=== PATIENT | female | born 1990 | race Caucasian/White ===

== ENCOUNTER → 2019-07-02 13:33 | Outpatient (CLI) | payer OTHER, SELFPAY ==
[2019-07-02 13:59] LABS: Add Manual Diff / Slide Review NO; Basophils Absolute Auto 100 /uL (0-100); Basophils Percent Auto 0.7 % (0-2); Eosinophils Absolute Auto 100 /uL (0-450); Eosinophils Percent Auto 1.9 % (2-4); Hematocrit 40.8 % (36-46); Lymphocytes Absolute Auto 2200 /uL (1100-4500); Lymphocytes Percent Auto 28.1 % (25-40); Mean Corpuscular HGB Conc 34.3 % (30-36); Mean Corpuscular Hemoglobin 31.9 PG (26-34); Mean Corpuscular Volume 92.9 fL (80-100); Monocytes Absolute Auto 900 /uL (0-900); Monocytes Percent Auto 11.5 % (3-14); Neutrophils Absolute Auto 4500 /uL (1500-7000); Neutrophils Percent Auto 57.8 % (50-75); Platelet Count 235 X10^3/uL (150-400); Red Blood Cell Count 4.38 X10^6/uL (4.0-5.2); Red Cell Distribution Width 12.4 % (11.6-14.8); White Blood Cell Count 7.8 X10^3/uL (4.5-11.0)
[2019-07-02 14:10] LABS: HEMOLYSIS < 15 (0-50); Sodium 138 mmol/L (137-145)
[2019-07-02 14:11] LABS: Alanine Aminotransferase 95 IU/L (<35); Albumin 4.4 g/dL (3.5-5.0); Albumin Globulin Ratio 1.3 (1.0-2.8); Alkaline Phosphatase 82 U/L (38-126); Aspartate Aminotransferase 99 IU/L (14-36); BUN Creatinine Ratio 26.7 (6-22); Bilirubin Total 0.4 mg/dL (0.2-1.3); Blood Urea Nitrogen 16 mg/dL (7-17); Calcium 9.1 mg/dL (8.4-10.2); Carbon Dioxide 26 mmol/L (22-32); Chloride 102 mmol/L (98-107); Estimated Glomerular Filt Rate > 60.0 mL/min (>60); Globulin 3.5 g/dL (1.7-4.1); Glucose 91 mg/dL (70-100); Lipase 234 U/L (23-300); Potassium 4.3 mmol/L (3.4-5.1); Total Protein 7.9 g/dL (6.3-8.2)
[2019-07-02 15:00] LABS: TSH w/ Reflex to FT4 1.62 uIU/mL (0.47-4.68)
== END ==
PROVIDERS: Visit Provider Physician Assistant
DX: R10.9 Unspecified abdominal pain (principal)
CPT/HCPCS: 36415; 80053; 83690; 84443; 85025

== ENCOUNTER → 2020-05-04 15:14 | Outpatient (CLI) | payer OTHER, SELFPAY ==
[2020-05-05 14:46] LABS: COVID19 Sendout Not Detected (Not Detect)
== END ==
PROVIDERS: Visit Provider Physician Assistant
DX: G43.909 Migraine, unspecified, not intractable, without status migrainosus (principal); J02.9 Acute pharyngitis, unspecified; M79.10 Myalgia, unspecified site; R05 Cough
CPT/HCPCS: 87635

== ENCOUNTER 2023-10-23 22:23 | Emergency (ER) | payer SELFPAY ==
[2023-10-23 22:30] VITALS: BP 148/95; PULSE 107; RESP 20; TEMP 36.6; O2SAT 97; BMI 30.9
--- NOTE | 2023-10-23 22:46 | ED.GENADULT ---
HPI - General Adult General Chief complaint: Medical Clearance Stated complaint: fit for [facility]/intoxicated Time Seen by Provider: 10/23/23 22:25 Source: police Mode of arrival: other History of Present Illness HPI narrative: 33-year-old male presents with law enforcement for evaluation prior to going to [facility]. Patient reportedly blew over a 0.3 while being evaluated for intoxication and she was here for general medical assessment prior to going to [facility]. Patient denies complaints. Tearful. Related Data Home Medications Medication Instructions Recorded Confirmed Control Pills PO 07/02/19 07/02/19 Allergies Allergy/AdvReac Type Severity Reaction Status Date / Time No Known Drug Allergies Allergy Verified 05/04/20 15:12 Review of Systems Review of Systems Narrative: Negative except as noted above Patient History Social History Smoking Status: Current some day smoker Smoking Status: Current some day smoker Exam Initial Vital Signs Initial Vital Signs: Vital Signs Temperature 97.8 F 10/23/23 22:30 Pulse Rate 107 H 10/23/23 22:30 Respiratory Rate 20 10/23/23 22:30 Blood Pressure 148/95 H 10/23/23 22:30 Pulse Oximetry 97 10/23/23 22:30 Oxygen Delivery Method Room Air 10/23/23 22:30 Const: Awake, alert, tearful Cardiac: Tachycardia, regular rhythm RESP: unlabored, clear bilaterally, no wheezing Skin: Warm, Dry, intact, no rashes Neuro: AO x3, CN II-XII grossly intact, ambulatory without assistance Course Vital Signs Vital signs: Vital Signs - 8 hr 10/23/23 22:30 Temperature 97.8 F Pulse Rate 107 H Respiratory Rate 20 Blood Pressure 148/95 H Pulse Oximetry 97 Oxygen Delivery Method Room Air Medical Decision Making [facility] Narrative Medical decision making narrative: General medical evaluation prior to going to [facility]. Patient does appear to be under the influence of alcohol however she was ambulatory without assistance, protecting her airway, and denying complaints. She was medically fit to be discharged into law enforcement. Discharge Plan Departure Patient Disposition: Home Clinical Impression: Alcohol intoxication Instructions: Blood Alcohol Level Activity Restrictions/Additional Instructions: Patient medically cleared for [facility] Prescriptions: No Action Control Pills PO Referrals: Miscellaneous,Doctor [Primary Care Provider] - Stand Alone Forms: Patient Portal/API
== END 2023-10-23 22:53 | disposition home or self-care (01) ==
PROVIDERS: Emergency Provider Emergency Medicine
DX: Z02.89 Encounter for other administrative examinations (principal); F10.129 Alcohol abuse with intoxication, unspecified
CPT/HCPCS: 99281; 99282